=== PATIENT | female | born 1940 | race Caucasian/White ===

== ENCOUNTER 2017-04-07 07:22 | Inpatient (IN) | payer MEDICARE, BC ==
[2017-04-03 13:15] LABS: HEMATOCRIT 41.7 % (36.0-48.0); HEMOGLOBIN 13.6 g/dL (12.0-16.0)
[2017-04-03 13:26] LABS: CHLORIDE, SERUM 107 MMOL/L (96-112); CO2 (CARBON DIOXIDE) 32 MMOL/L (24-34); CREATININE 0.82 MG/DL (0.55-1.02); GFR AFRICAN AMERICAN 79 ML/MIN (>=60); GFR NON AFRICAN AMERICAN 69 ML/MIN (>=60); SODIUM, SERUM 145 MMOL/L (135-148)
[2017-04-03 13:28] LABS: BUN (BLOOD UREA NITROGEN) 19 MG/DL (6-23); CALCIUM, SERUM 9.3 MG/DL (8.5-10.4); GLUCOSE, SERUM 102 MG/DL (60-99); POTASSIUM, SERUM 4.7 MMOL/L (3.5-5.3)
--- NOTE | ~2017-04-07 | PREOPHP ---
PreOp History and Physical [facility] [address] [place]. [address] NAME: DEMETRIUS PALM : 38 STATUS : ADM IN PAT#: [id number] AGE: 76 ADM/REG DATE : 04/07/17 MR#: [id number] REPORT SERV DATE: 04/07/17 DICTATED BY: ANTHONY SMILEY DATE: 04/07/17 REPORT STATUS : Draft TRANSCRIBED BY: MODDung DATE: 04/07/17 CHIEF COMPLAINT: Intractable back pain, bilateral leg pain. HISTORY OF PRESENT ILLNESS: This is a 76-year-old female whom I have known from the past. The patient has undergone a previous L2 to the sacrum decompression and fusion for a flat back deformity. She also had a pelvis subtraction osteotomy. 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 Her overall sagittal balance is markedly abnormal. Her sagittal vertical axis is at 12 cm. The patient also has developed severe spinal stenosis at L1-2 and severe central canal stenosis at this level. Because of the above, the patient needs a decompression of L1-2. She also needs a hardware removal at L2 and L3. Originally, I was going to do hardware removal with a decompression posteriorly followed by an anterior retroperitoneal approach and an interbody cage to try to increase the overall lordosis through the disk space, but then the patient informed me that she has had a TRAM flap for previous best cancer and I have decided to proceed with everything posteriorly. This will be a two-stage procedure, initial stage will be hardware removal L2-L3, the laminectomy L1-2, followed by three-column osteotomy removing all, but the inferior aspect of the pedicle and removing the posterior superior aspect of the vertebral body as well as removing the disk itself. This will allow a large corrective osteotomy. Finally, the patient will need posterior stabilization from approximately T9-L3. A dual-amanda technique will be utilized distally to ensure a proper stabilization. Also, the patient was found to have osteoporosis and we have delayed her surgery several months as she has been receiving Forteo 20 mg subcu each day and now our bone scan is much improved. Second stage of the procedure will be completion of the osteotomy on the right side and posterior instrumentation. I will not complete the osteotomy on the right side until the 2nd stage to allow some slow gradual curve correction over the next three to four days while in the hospital. Again, the patient understands this is a very risky procedure and that she could have everything up to including paralysis and . She could have major vessel injury, blood loss, etc. Consent form has been signed. Today, in the preop holding area, the patient was identified and all questions were answered. The patient voiced understanding of the risks, willingness to accept those, and requested to proceed with surgery. PAST MEDICAL HISTORY: Has included osteoarthritis, osteoporosis. She has had a ductal cancer of the breast. She has had hypertension, hypercholesterolemia, hypothyroidism, chronic renal failure, DVT. PAST SURGICAL HISTORY: Abdominal herniorrhaphy, kidney stone removal, cataract extraction, lens implants, colonoscopy, D and C, mastectomy, TRAM flaps, partial thyroidectomy, and the previous pelvic subtraction, osteotomy, and posterior fusion with instrumentation, L2-S1. This was in 2010. CURRENT MEDICATIONS: Includes Xanax, amlodipine, aspirin, atorvastatin, cranberry, Forteo, gabapentin, hyaluronic acid, levothyroxine, MiraLAX, multiple vitamins, potassium, PreOp History and Physical [address] [address] NAME: DEMETRIUS PALM : 38 STATUS : ADM IN [facility]#: [id number] AGE: 76 ADM/REG DATE : 04/07/17 MR#: [id number] REPORT SERV DATE: 04/07/17 DICTATED BY: ANTHONY SMILEY DATE: 04/07/17 REPORT STATUS : Draft TRANSCRIBED BY: NATHALIA DATE: 04/07/17 , tramadol, Zantac, vitamin C, and vitamin D. ALLERGIES: CODEINE AND TALWIN. SOCIAL HISTORY: She is . Retired. Does not use any tobacco or alcohol. FAMILY HISTORY: Mother of diabetes, father had hypertensive disorder, and one son has bipolar disorder. PHYSICAL EXAMINATION: GENERAL: She is 5 feet 5 inches, 100 pounds, BMI of 16.6. She is alert, cooperative, well oriented. She is very thin. She walks with an assistive device with the walker leaning forward. HEENT: Exam is grossly normal except that her pupils have been altered by prior cataract surgery. NECK: Supple. LUNGS: Clear to auscultation. HEART: Rate is regular and rhythmic. MUSCULOSKELETAL: Spine has a very flat deformity. She has a kyphotic stance. She has a very obvious Gibbus deformity, it is palpable. Her reflexes are completely absent. Her iliopsoas strength is 4/5 bilateral. Her quadriceps is 4+/5. All other strengths are 5/5. No dermatomal sensory deficit is found. There is no evidence of myelopathy. Toes are downgoing. No ankle clonus is found. Orthopedically, she has no pain with moving hips, knees, or ankles. There are pulses in all four extremities. No abnormal skin lesions are found. ASSESSMENT AND RECOMMENDATIONS: As listed above. /MODL Anthony Smiley D.O. / [id number] CC: Anthony Smiley D.O.
--- NOTE | ~2017-04-07 | CN ---
Consultation Report [facility] [address] [place]. [address] NAME: DEMETRIUS PALM : 38 STATUS : ADM IN PAT#: [id number] AGE: 76 ADM/REG DATE : 04/07/17 MR#: [id number] REPORT SERV DATE: 04/08/17 DICTATED BY: STAN VELA DATE: 04/08/17 REPORT STATUS : Draft TRANSCRIBED BY: MODL DATE: 04/08/17 CARDIOLOGY CONSULTATION DATE OF CONSULTATION: 04/08/2017 CHIEF COMPLAINT: Chest pain. HISTORY OF PRESENT ILLNESS: The patient is a 76-year-old female, status post spinal surgery. Earlier today, she complained of 8/10 left-sided chest discomfort with radiation to the left shoulder. This occurred after eating ice for some dysphagia and "burning" in the throat. The patient reports a history of GERD. She reports that this occurs on a relatively frequent basis. The patient is a retired registered nurse. Prior to her admission for surgery, she was moderately active. She had no chest pain or dyspnea with physical activity. She reports at the time of her chest pain, she was administered nitroglycerin by the rapid response team and seemed to have no significant affect on her chest pain. She has had no recurrent chest pain since that time. She reports very specifically that she had "left breast pain, not chest pain." She attributes this to musculoskeletal etiology versus GERD. Troponin is negative since the event. Total CK 936 however post surgery with a CK-MB of 15.8. Electrocardiogram at the time of chest pain demonstrated sinus rhythm and normal EKG. PAST MEDICAL HISTORY: Ductal carcinoma of the breast, osteoporosis, osteoarthritis, degenerative disc disease, remote history of DVT, chronic kidney disease, hypothyroidism, hypertension, hyperlipidemia, GERD. PAST SURGICAL HISTORY: Abdominal herniorrhaphy, renal stone excision, cataract excision with lens implant, mastectomy, dilation and curettage, partial thyroidectomy, posterior fusion with instrumentation of L2 through S1, and Grayson fundoplication. SOCIAL HISTORY: Denies previous tobacco or illicit drug use. Exceptionally rare alcohol intake. Retired nurse. FAMILY HISTORY: Mother with history of pulmonary embolism and father with mitral valve disease. REVIEW OF SYSTEMS: Negative for all organ systems except per the history of present illness. PHYSICAL EXAMINATION: VITALS: Blood pressure 104/62, pulse 78, respirations 16 and unlabored, saturating 98% on 2 liters nasal cannula, weight 44 kg. GENERAL: Thin elderly female, in no acute distress. HEENT: Normal. NECK: Supple, no JVD, right carotid bruit is noted. Normal carotid upstroke bilaterally, Consultation Report [facility] [id number] [place]. [address] NAME: DEMETRIUS PALM : 38 STATUS : ADM IN PAT#: [id number] AGE: 76 ADM/REG DATE : 04/07/17 MR#: [id number] REPORT SERV DATE: 04/08/17 DICTATED BY: STAN VELA DATE: 04/08/17 REPORT STATUS : Draft TRANSCRIBED BY: MODL DATE: 04/08/17 no thyromegaly. LUNGS: Clear to auscultation and percussion. No wheezes, rales or rhonchi. No use of accessory muscles. CARDIOLOGY: Regular rhythm, normal S1, S2, no thrill, no murmur, rubs or gallops, normal PMI. ABDOMEN: Bowel sounds positive, soft, nontender, and nondistended. No masses or aortic bruits. No hepatosplenomegaly or hepatojugular reflux. EXTREMITIES: No edema. Normal pulses. No clubbing or cyanosis. SKIN: Warm and dry, no significant rash. NEUROLOGIC: Alert and oriented x 3. Appropriate mood. LABORATORY DATA: Sodium 143, potassium 4.3, chloride 107, BUN 14, creatinine 0.78, glucose 193. WBC 10.1, hemoglobin 9.6, hematocrit 28.9, platelets 175,000. Creatine kinase 935, CK MB 15.8, troponin 0.02. EKG: Sinus rhythm, normal EKG during chest pain. IMPRESSION: 1. Left-sided chest pain-the patient declines any further testing including echocardiogram and chemical nuclear perfusion stress test. She attributes her symptoms to gastroesophageal reflux disease versus musculoskeletal etiology. As the patient declines any further evaluation, we would recommend continuation of current medications. Given current blood pressure and pulse with no history of coronary disease, no indication for beta-diane at this time. 2. Carotid bruit - reports previous history of carotid ultrasound, uninterested in further evaluation of the same. 3. Hypertension - adequate control currently. Continue current medications. Thank you for the opportunity to see the patient in consultation. This patient has no interest in further evaluation, we will sign off and be available should any new issues arise. CSL/MODL Marta Vela M.D. / [id number] CC: Bibi Delcid
--- NOTE | ~2017-04-07 | DS ---
Discharge Summary [facility] [address] [place]. [address] NAME: DEMETRIUS PALM : 38 STATUS : DIS IN PAT#: [id number] AGE: 76 ADM/REG DATE : 04/07/17 MR#: [id number] REPORT SERV DATE: 04/26/17 DICTATED BY: ANTHONY SMILEY DATE: 04/25/17 REPORT STATUS : Draft TRANSCRIBED BY: NATHALIA DATE: 04/25/17 Data Collection from hospitalization DISCHARGE DIAGNOSES: 1. Severe stenosis, L1-L2. 2. 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 3. Hypertension. 4. Osteoarthritis. 5. Osteoporosis. 6. History of ductal carcinoma of the breast. 7. Hypercholesterolemia. 8. Hypothyroidism. 9. Chronic renal failure. CONSULTATIONS: Marta Vela M.D. PROCEDURE PERFORMED: 1. Microscopic and navigation-assisted surgery; hardware removal, L2 and L3, complete laminectomy, foraminotomy, facetectomy, L1-L2. Three column osteotomy L2, transforaminal diskectomy, L1-L2, anterior interbody cage at L1-L2. 2. Completion of three column spinal osteotomy on the right side. Interbody cage insertion and interbody fusion at L1-L2, posterolateral spinal fusion with segmental instrumentation, T9-L4, 04/11/2017. PATHOLOGY: Spine, lumbar, bone, tissue, and hardware, soft tissues-patchy chronic inflammation, scar and embedded bone fragments, atrophic skeletal muscle, bone-reparative changes with sclerosis, orthopedic hardware-see gross description, vertebral bone and soft tissue thoracolumbar spine-orthopedic hardware, bone and soft tissue-chronic reactive changes (no crystal for acute inflammation). MEDICATIONS: Xanax 0.5 mg at bedtime, Norvasc 5 mg at bedtime, vitamin C 500 mg every morning, Lipitor 10 mg every morning, vitamin D3 of 1000 units every morning, Colace 100 mg twice a day Zantac 150 mg every morning, levothyroxine 75 mcg every morning, Claritin 10 mg every morning, multivitamin one every morning as instructed. Urocit-K 60 mEq every morning, Ultram 50 mg every six hours, Tylenol 650 mg every four hours as needed orally or rectally, Mylanta 30 mL as needed, Dulcolax 15 mg as needed, Valium 2 mg every four hours as needed, Benadryl 12.5 mg every six hours as needed, Dilaudid 2 mg to 4 mg every four hours as needed, milk of magnesia 30 mL twice a day as needed, aspirin 81 mg every morning, probiotic one every morning as instructed, hyaluronic acid one every morning as instructed, Forteo Pen every evening as instructed. CONDITION AT DISCHARGE: Stable. DISPOSITION: The patient was discharged to [facility] on a regular diet with activities as instructed. She would follow up with me two weeks following discharge. HOSPITAL COURSE: This is a 76-year-old female who had previously undergone L2 to sacrum decompression and fusion for a flat back deformity. She also had a pelvic subtraction Discharge Summary [address] [place]. [address] NAME: DEMETRIUS PALM : 38 STATUS : DIS IN PAT#: [id number] AGE: 76 ADM/REG DATE : 04/07/17 MR#: [id number] REPORT SERV DATE: 04/26/17 DICTATED BY: ANTHONY SMILEY DATE: 04/25/17 REPORT STATUS : Draft TRANSCRIBED BY: NATHALIA DATE: 04/25/17 osteotomy. She had very good outcome from her original surgery and had now developed proximal junctional failure. She has a marked gibbus deformity at L1-L2 and compression fracture of the inferior aspect of L1 and superior aspect of L2. She has marked gibbus deformity at L1-L2 and now has significant spinal pelvic malalignment syndrome. Her overall sagittal balance was markedly abnormal. Her sagittal vertical axis is 12 cm. She had also developed severe spinal stenosis at L1-L2 and severe central canal stenosis at this level. Treatment options were discussed and it was elected to proceed with surgical intervention. She was admitted to the hospital at this time for further evaluation and treatment. Upon admission, she was taken to the operating room where she underwent the above-mentioned procedures. She tolerated this well and there were no complications. On postop day #1, she was seen in consultation by Dr. Marta Vela regarding chest pain. Prior to this admission, she has been moderately active. She had no chest pain or dyspnea with physical activity. She had complained of some 8/10 left-sided chest discomfort with radiation to the left shoulder earlier in the day. This occurred after eating ice for some dysphagia and burning in her throat. She does have a history of gastroesophageal reflux disease. She reports that this does occur on a relatively frequent basis. She had been administered nitroglycerin by the rapid response team and seemed to have no significant affect on her chest pain. She has not had recurrent chest pain since that time. The patient reported very specifically that she had left breast pain, not chest pain. She attributes this to musculoskeletal etiology versus gastroesophageal reflux disease. Troponin was negative since the event. Total CK was 136 with a CK-MB of 15.8. Electrocardiogram at that time, her chest pain demonstrated sinus rhythm and normal EKG. White blood cell count was 10.1. The patient declined any further testing including echocardiogram and chemical nuclear perfusion stress test. She attributed her symptoms to gastroesophageal reflux disease versus musculoskeletal etiology. Her current medications were continued. Blood pressure was under adequate control. Her current blood pressure medications were continued. On postop day #2, she was doing okay. She was encouraged to participate with Physical Therapy. Plans are being made to proceed with the second stage of her surgical intervention. She had no complaints of leg pain. She did have some pain in her low back. On 04/11/2017, she was taken back to the operating room where she underwent the above-mentioned procedure. She tolerated this well. There were no complications. On 04/12/2017, she was doing well except for severe low back pain. She described as being 10/10. Her pain medications had been increased. Over the next couple of days, she continued to progress. She was doing well. She was up sitting in a chair. She had no leg pain. She was placed on oral medications. Discharge planning was performed. On 04/14/2017, she still had a lot of low back pain. She had no leg pain. She was passing flatus. Her Dilaudid had been increased discharge instructions were given. Due to her improved and stable condition, she was discharged to [facility] with the above-stated instructions. Information collected by: Kailey Bergman I submit the above information as my discharge summary. Discharge Summary [facility] [id number] [place]. [address] NAME: DEMETRIUS PALM : 38 STATUS : DIS IN [facility]#: [id number] AGE: 76 ADM/REG DATE : 04/07/17 MR#: [id number] REPORT SERV DATE: 04/26/17 DICTATED BY: ANTHONY SMILEY DATE: 04/25/17 REPORT STATUS : Draft TRANSCRIBED BY: MODL DATE: 04/25/17 TG/NATHALIA Anthony Smiley D.O. / [id number] CC: iBbi Delcid MD C. Samuel Ledford, M.D. [facility]
--- NOTE | ~2017-04-07 | OP ---
Record Of Operation [facility] [address] [place]. [address] NAME: DEMETRIUS PALM : 38 STATUS : ADM [facility]#: [id number] AGE: 76 ADM/REG DATE : 04/07/17 MR#: [id number] REPORT SERV DATE: 04/08/17 DICTATED BY: ANTHONY SMILEY DATE: 04/07/17 REPORT STATUS : Draft TRANSCRIBED BY: MODL DATE: 04/07/17 DATE OF PROCEDURE: PREOPERATIVE DIAGNOSES: 1. 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 2. Previous lumbar fusion with osteotomy and instrumentation, L2 to S1. 3. Severe spinal stenosis, L1-L2. 4. Prominent painful hardware at L2-L3. POSTOPERATIVE DIAGNOSES: 1. 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 2. Previous lumbar fusion with osteotomy and instrumentation, L2 to S1. 3. Severe spinal stenosis, L1-L2. 4. Prominent painful hardware at L2-L3. PROCEDURES: 1. Microscopic and navigation-assisted surgery. 2. Hardware removal, L2 and L3. 3. Complete laminectomy, foraminotomy, facetectomy, L1-L2. 4. A three-column osteotomy, L2. 5. Transforaminal diskectomy, L1-L2. 6. Anterior interbody cage at L1-L2. SURGEON: Anthony Smiley D.O. BARK SPUDDER: Maurizio Alcazar. ANESTHESIA: General. BLOOD LOSS: 200 mL. INDICATION FOR SURGERY: Indication for surgery and risks were explained. They are listed in last office note as well as the history and physical. See that for detail. DESCRIPTION OF PROCEDURE: Antibiotic prophylaxis given. Neurophysiology monitoring leads inserted. The patient brought to the operative suite. General anesthetic including endotracheal intubation administered. Quiles catheter was placed with sterile technique. The patient was placed prone on a Girma spine frame. Bony prominences were carefully padded. The thoracolumbar spine was scrubbed with Hibiclens solution. DuraPrep was painted. Sterile drapes applied. Please note that intraoperative imaging was taken after we placed the patient in a prone position, and there was essentially no correction of the deformity at L1-L2 as the patient had had instrumentation from L2 to the pelvis, but the fusion had bled over and extended to L1 and appeared to have a rather solid fusion even at L1-L2. Record Of Operation [facility] [address] [place]. [address] NAME: DEMETRIUS PALM : 38 STATUS : ADM IN PAT#: [id number] AGE: 76 ADM/REG DATE : 04/07/17 MR#: [id number] REPORT SERV DATE: 04/08/17 DICTATED BY: ANTHONY SMILEY DATE: 04/07/17 REPORT STATUS : Draft TRANSCRIBED BY: MODL DATE: 04/07/17 After the patient was properly prepped and draped and sterile drapes applied, a midline incision was carried out. The exposure was carried out from T9 to the L5 area. Midline fascia was divided. Paraspinous muscles retracted laterally and subperiosteal dissection was carried out all the way to the tip of the transverse processes in the thoracic spine and all the way out past the posterolateral fusion and hardware in the mid lumbar spine. The hardware at L2 and L3 was exposed. A carbide bit was used to transect the amanda just below the screw at L3. Both left and right side, the hardware was removed completely. Next, an intraoperative CT scan with O-arm was obtained. A CT information was used to register navigational system. With navigational assistance, I observed and outlined the inferior aspect of the lamina of L2 and also the facet joints. I then very carefully from distal to proximal released the epidural adhesions to the dura and carried out a complete laminectomy, foraminotomy, facetectomy, removing the entire lamina and facet joints both superior and inferior at L2, the anterior facet joint of L1, superior facet joint of L2 as well as the vast majority of the lamina of L1. This was all done with cutting burs; sunshine burs; and 2, 3, and 4 mm Kerrison rongeurs. We did encounter one small area of dural adhesion where I had to place a couple of 4-0 Nurolon sutures for an incidental durotomy, but it was watertight and no problems occurred. I decided I would then carry out an osteotomy through the pedicle of L2. The exiting L1 nerve root, the disk space of L1-L2, and the pedicle of L2 were isolated. I removed the pedicle from lateral to medial. We did leave the inferior third of the pedicle and the cortical surface. I then entered at approximately the junction of the anterior and middle third of the vertebral body, so a posterior lateral osteotomy was carried out. The disk itself was removed completely with curettes and rongeurs and August osteotomy was completed. The wounds were irrigated copiously. This gave plenty of room to place a 12 mm x 22 mm interbody cage, and I then left the cage to provide some anterior column instability. There was some posterior lateral fusion on the right side, which had not been osteotomized, but I could see some slight motion occurring and I felt like I would give this 2 to 3 days to slowly and spontaneously correct over time and the second stage of surgery will include the final osteotomy on the right side at L1-L2 as well as the diskectomy and interbody cage on the right side, and interbody fusion at L1-L2 followed by the posterior instrumentation T9 to L4, and a double amanda construct will be used distally to provide rigid stability. I think we can get excellent correction through this osteotomy distally. The wounds were irrigated. Vancomycin powder was placed in the wound and the myofascial layer was closed with a double looped #1 PDS suture. The subcutaneous tissue closed with 2-0 Vicryl suture, 2-0 vertical mattress nylon suture used for skin closure. Sterile dressing applied. The patient awakened, extubated, taken to recovery room in satisfactory condition having tolerated procedure well. Sponge, needle, and instrument counts were correct. No intraoperative complications noted. /[facility] Record Of Operation [facility] [address] [facility] [place]. [address] NAME: DEMETRIUS PALM : 38 STATUS : ADM IN [facility]#: [id number] AGE: 76 ADM/REG DATE : 04/07/17 MR#: [id number] REPORT SERV DATE: 04/08/17 DICTATED BY: ANTHONY SMILEY DATE: 04/07/17 REPORT STATUS : Draft TRANSCRIBED BY: MODL DATE: 04/07/17 Anthony Smiley D.O. / [id number] CC: Anthony Smiley D.O.
--- NOTE | ~2017-04-07 | OP ---
Record Of Operation [facility] [address] [place]. [address] NAME: DEMETRIUS PALM : 36 STATUS : ADM IN [facility]#: [id number] AGE: 76 ADM/REG DATE : 04/07/17 MR#: [id number] REPORT SERV DATE: 04/13/17 DICTATED BY: ANTHONY SMILEY DATE: 04/13/17 REPORT STATUS : Draft TRANSCRIBED BY: MODL DATE: 04/13/17 DATE OF PROCEDURE: 04/11/2017 PREOPERATIVE DIAGNOSES: 1. Previous L2-S1 fusion with instrumentation. 2. Proximal junctional kyphosis/failure. 3. Thoracolumbar kyphoscoliosis. POSTOPERATIVE DIAGNOSES: 1. Previous L2-S1 fusion with instrumentation. 2. Proximal junctional kyphosis/failure. 3. Thoracolumbar kyphoscoliosis. PROCEDURE: 1. Right-sided three-column osteotomy L1-2. 2. Completion of transforaminal diskectomy L1-2. 3. Interbody cage exchange. 4. Posterolateral interbody fusion L1-2. 5. Posterior spinal fusion with segmental spinal instrumentation T9-L4. SURGEON: Anthony Smiely D.O. BALL TRUING MACHINE OPERATOR: Maurizio Alcazar. ANESTHESIA: General. BLOOD LOSS: 150 mL. INDICATIONS: Indications for surgery and risks were explained. They are listed in the last office note as well as the history and physical. See that for detail. Please note, this is a 2nd stage surgery, 1st stage was on 04/07/2017. OPERATION: The patient was identified in preop holding. All antibiotic prophylaxis was given. Neurophysiology monitoring leads were inserted. The patient was brought to the operative suite. General anesthetic including endotracheal intubation was administered. Quiles catheter was already in place. She was placed prone on Girma spine frame. Bony prominences were carefully padded. Thoracolumbar spine was scrubbed with Hibiclens solution and DuraPrep was painted. Sterile drapes were applied. Initially, the wound was irrigated copiously. Because of the complexity of surgery, we felt that intraoperative navigation was mandatory. Reference frame was attached to the spinous process of T9. Intraoperative CT scan with O- arm obtained, CT information used to register the navigational system. Record Of Operation [facility] [address] [place]. [address] NAME: DEMETRIUS PALM : 36 STATUS : ADM IN PAT#: [id number] AGE: 76 ADM/REG DATE : 04/07/17 MR#: [id number] REPORT SERV DATE: 04/13/17 DICTATED BY: ANTHONY SMILEY DATE: 04/13/17 REPORT STATUS : Draft TRANSCRIBED BY: NATHALIA DATE: 04/13/17 With navigational assistance, I identified the entry into the pedicles of L1, T12, 11, 10, and 9. A army helicopter pilot hole was created through the pedicle and then each pedicle was tapped. The hardware was placed on the left side including the screws, as well as the amanda, and the amanda was connected to the distal amanda through a Clemons. A stabilizing amanda was placed initially, which was a working amanda. We then placed the screws of T9, 10, 11, and 12 on the right side. Under microscope, we then, with navigational assistance, carried out resection of the previous fusion mass at L1-2. We then removed the facet joint completely with removal of the pars interarticularis and the facet of L1 and superior facet of L2. We then carried out an HHALL osteotomy through the pedicle of L2 removing not only that the superior 2/3 of the pedicle but also removing the posterior superior aspect of the L2 vertebral body and also removing the entire disk on the right side at L1-2. The previous cage at L1-2 was removed and exchanged. The wound was irrigated. We placed a 10 x 22 mm cage anteriorly and turned it transversely as a brace, but over the anterior body of L1-2, we then packed the posterior lateral portion of the interbody space with local bone graft and allograft. The screw was inserted at L1 on the right. The right-sided permanent amanda was connected to a Denzel distally. Reduction was carried out slowly and gradually with monitoring being normal throughout the entire reduction process to reduce the kyphoscoliosis. Initially, we reduced the kyphosis and then reduced the scoliosis by distracting on the concave side. We had exchanged working amanda for a permanent amanda on the left side as well. After correction of the deformity, we then did a double [id number] connection between T10- 11 as well as L4-5 to create a double amanda construct bilateral to reinforce the osteotomy site in terms of strength. Finally, a posterior lateral fusion was carried out from T9-L4 using a combination of local bone graft allograft and bone protein. The intraoperative CT scan was repeated showing excellent position of all implants. Vancomycin powder was placed in the wound. The myofascial layer was closed with double looped #1 PDS suture. The subcutaneous tissue was closed with 2-0 Vicryl suture, 2-0 vertical mattress nylon suture was used for skin closure. Sterile dressing was applied. The patient was awakened, extubated, taken to recovery room in satisfactory condition having tolerated the procedure well. KASH/NATHALIA Anthony Smiley D.O. / [id number] CC: Bibi Delcid ANDERS EUGENE
--- NOTE | ~2017-04-07 | OP ---
Record Of Operation [facility] [address] [place]. [address] NAME: DEMETRIUS PALM : 36 STATUS : ADM IN PAT#: [id number] AGE: 76 ADM/REG DATE : 04/07/17 MR#: [id number] REPORT SERV DATE: 04/11/17 DICTATED BY: ANTHONY SMILEY DATE: 04/11/17 REPORT STATUS : Draft TRANSCRIBED BY: MODL DATE: 04/11/17 DATE OF PROCEDURE: 04/11/2017 PREOPERATIVE DIAGNOSIS: Thoracolumbar kyphoscoliosis. POSTOPERATIVE DIAGNOSIS: Thoracolumbar kyphoscoliosis. PROCEDURE: 1. Completion of 3-column spinal osteotomy, right side. 2. Interbody cage insertion, interbody fusion, L1-2. 3. Posterior lateral spinal fusion with segmental instrumentation, T9-L4. TOOL AND CUTTER GRINDER: Maurizio Alcazar. ANESTHESIA: General. ESTIMATED BLOOD LOSS: 150 mL. INDICATION FOR SURGERY: Indication for surgery and risks have already been explained. They are listed in the history and physical, see that for detail. DESCRIPTION OF PROCEDURE: The patient was identified in the preop holding area. Antibiotic prophylaxis given. Neurophysiology monitoring leads inserted. The patient brought to the operative suite. General anesthetic including endotracheal intubation was administered. Quiles catheter was already in place. She was placed prone on a Girma spine frame. Bony prominences were carefully padded. Thoracolumbar spine scrubbed with Hibiclens solution. DuraPrep was painted. Sterile drapes applied. Previous incisions from the first stage of the surgery four days ago was removed. The wound was opened and copiously irrigated. The wound appeared very clean. Our first step was to stabilize the spine by placing hardware on the left side. We initially attached a reference frame to the spinous process of T9. Intraoperative CT scan with O-arm obtained, CT information used to register the navigational system. With navigational assistance, I placed a chief pilot hole through the pedicle of T9, T10, T11, T12, and L1 bilaterally. Each of the pedicles were then tapped and the polyaxial five Solera titanium screws were placed after the facet joints were decorticated along with the transverse processes in the remaining lamina. After all the screws were placed, I then placed a temporary working amanda from T9-L4. I then used a sterilely draped microscope and under microscopic dissection, I removed the entire too-lamina, the facet, and the superior portion of the pedicle of L1-2. I removed the superior part of the pedicle at L2 to allow a August 3-column osteotomy. The transforaminal diskectomy completed on the right side as it had already been completed on the left side. The wounds were irrigated. A previously placed cage at L1-2 was removed. I Record Of Operation [facility] [id number] [place]. [address] NAME: DEMETRIUS PALM : 36 STATUS : ADM IN PAT#: [id number] AGE: 76 ADM/REG DATE : 04/07/17 MR#: [id number] REPORT SERV DATE: 04/11/17 DICTATED BY: ANTHONY SMILEY DATE: 04/11/17 REPORT STATUS : Draft TRANSCRIBED BY: NATHALIA DATE: 04/11/17 exchanged it for a slightly smaller and shorter and I turned the cage transversely to allow bracing of the anterior column. Next, we placed the amanda from T9-L4 using a [place] end-to-end connector to connect a distal amanda. We did contour it for slight lordosis in the upper lumbar spine and slight kyphosis in the lower thoracic spine. A slight reduction at the osteotomy site was carried out. Motor evoked potentials and sensory evoked potentials remained normal throughout the reduction of the kyphoscoliosis. After correcting the sagittal deformity, we then compressed on the left side correcting the coronal plane deformity, this was a biplanar correction. After final correction was completed, the amanda on the right side and the left side were tightened into final position. We then placed a dual amanda with a [id number] connector from T11 to L4. This dual amanda construct markedly increased the overall strength of the construct across the osteotomy site. Finally, a posterior lateral spinal fusion was carried out with local bone graft, allograft, and a small dosage of bone morphogenic protein from T9-L4. Intraoperative CT scan with O-arm repeated showing excellent correction of the kyphoscoliosis and also good position of all implants. The vancomycin powder was placed in the wound. The myofascial layer was closed with double looped #1 PDS suture. The subcutaneous tissue closed with 2-0 Vicryl sutures, 2-0 vertical mattress nylon suture used for skin closure. Sterile dressings applied. The patient was awakened, extubated, and taken to the recovery room in satisfactory condition having tolerated the procedure well. Sponge, needle, and instrument counts were correct. No intraoperative complications noted. KASH/NATHALIA Anthony Smiley D.O. / [id number] CC: Bibi Delcid ANDERS EUGENE
[~2017-04-07 07:22] MED LIST: ALLEGRA180 PO; ASAB PO; CALTRA600D PO; CLARIT10 PO; CRANBERRY300 MG PO; FOLIC PO; FORTEO SC; FOSAMAX70 MG PO; HYALURONIC ACID PO; HYALURONIC20 MG OR; LEVOTHYROXIN75 MCG PO; LIPITOR10 PO; MIRALAXPKT PO; MULTI-VIT HP PO; MULTIVITAMI1 PO; NEXIUM40 PO; NORV5 PO; PRAVACHOL40 MG PO; PRIN5 PO; PROBIOTIC PO; UROCIT K; UROCIT-K 15 PO; VITAMIN D31000 UNIT PO; VITAMIN E; VITC500 PO; X5 PO; ZANTAC 150 PO
[2017-04-07 17:33] LABS: BUN (BLOOD UREA NITROGEN) 16 MG/DL (6-23); CHLORIDE, SERUM 107 MMOL/L (96-112); CO2 (CARBON DIOXIDE) 28 MMOL/L (24-34); CREATININE 0.77 MG/DL (0.55-1.02); GFR AFRICAN AMERICAN 86 ML/MIN (>=60); GFR NON AFRICAN AMERICAN 74 ML/MIN (>=60)
[2017-04-07 17:34] LABS: CALCIUM, SERUM 7.8 MG/DL (8.5-10.4); GLUCOSE, SERUM 195 MG/DL (60-99); POTASSIUM, SERUM 3.5 MMOL/L (3.5-5.3); SODIUM, SERUM 137 MMOL/L (135-148)
[2017-04-07 17:41] LABS: BASOPHILS 0.1 %; BASOPHILS ABSOLUTE 0.01 10/3/uL (0.0-0.16); EOSINOPHILS 0.3 %; EOSINOPHILS ABSOLUTE 0.03 10/3/uL (0.0-0.53); IMMATURE GRANULOCYTES 0.2 %; IMMATURE GRANULOCYTES ABSOLUTE 0.02 10/3/uL (0.0-0.11); LYMPHOCYTES 6.8 %; LYMPHOCYTES ABSOLUTE 0.68 10/3/uL (0.67-4.30); MEAN CORPUS HGB CONC 33.2 g/dL (32.0-36.0); MEAN CORPUSCULAR HEMOGLOB 31.2 pg (26.0-34.0); MEAN CORPUSCULAR VOLUME 93.9 fL (80-100); MONOCYTES 1.9 %; MONOCYTES ABSOLUTE 0.19 10/3/uL (0.21-1.20); NEUTROPHILS 90.7 %; NEUTROPHILS ABSOLUTE 9.06 10/3/uL (2.02-8.40); RBC DISTRIBUTION WIDTH 14.2 % (12.0-16.0); RED CELL COUNT 3.46 10/6/uL (4.0-5.6)
[2017-04-07 17:44] LABS: HEMATOCRIT 32.5 % (36.0-48.0); HEMOGLOBIN 10.8 g/dL (12.0-16.0); MANUAL DIFF NO %; PLATELET COUNT 173 10/3/uL (150-400)
[2017-04-08 04:24] LABS: BASOPHILS 0.2 %; BASOPHILS ABSOLUTE 0.02 10/3/uL (0.0-0.16); EOSINOPHILS 0.1 %; EOSINOPHILS ABSOLUTE 0.01 10/3/uL (0.0-0.53); HEMATOCRIT 28.9 % (36.0-48.0); HEMOGLOBIN 9.6 g/dL (12.0-16.0); IMMATURE GRANULOCYTES 0.2 %; IMMATURE GRANULOCYTES ABSOLUTE 0.02 10/3/uL (0.0-0.11); LYMPHOCYTES ABSOLUTE 1.01 10/3/uL (0.67-4.30); MANUAL DIFF NO %; MEAN CORPUS HGB CONC 33.2 g/dL (32.0-36.0); MEAN CORPUSCULAR HEMOGLOB 31.9 pg (26.0-34.0); MEAN PLATELET VOLUME 9.9 fL (9.2-13.0); MONOCYTES 9.2 %; MONOCYTES ABSOLUTE 0.93 10/3/uL (0.21-1.20); NEUTROPHILS 80.3 %; NEUTROPHILS ABSOLUTE 8.15 10/3/uL (2.02-8.40); PLATELET COUNT 175 10/3/uL (150-400); RBC DISTRIBUTION WIDTH 14.3 % (12.0-16.0); RED CELL COUNT 3.01 10/6/uL (4.0-5.6); WHITE BLOOD CELLS 10.1 10/3/uL (4.5-10.5)
[2017-04-08 04:35] LABS: BUN (BLOOD UREA NITROGEN) 14 MG/DL (6-23); CALCIUM, SERUM 7.2 MG/DL (8.5-10.4); CHLORIDE, SERUM 107 MMOL/L (96-112); CO2 (CARBON DIOXIDE) 30 MMOL/L (24-34); CREATININE 0.78 MG/DL (0.55-1.02); GFR AFRICAN AMERICAN 84 ML/MIN (>=60); GFR NON AFRICAN AMERICAN 73 ML/MIN (>=60); GLUCOSE, SERUM 193 MG/DL (60-99); SODIUM, SERUM 143 MMOL/L (135-148)
[2017-04-08 04:36] LABS: POTASSIUM, SERUM 4.3 MMOL/L (3.5-5.3)
[2017-04-08 12:19] LABS: CK-MB 15.8 NG/ML; CKMB INDEX (NOT ORD) 1.7; TROPONIN I 0.02 NG/ML (<0.05)
[2017-04-10 04:52] LABS: BASOPHILS 0.2 %; BASOPHILS ABSOLUTE 0.02 10/3/uL (0.0-0.16); EOSINOPHILS 2.9 %; EOSINOPHILS ABSOLUTE 0.25 10/3/uL (0.0-0.53); HEMATOCRIT 29.7 % (36.0-48.0); HEMOGLOBIN 9.8 g/dL (12.0-16.0); IMMATURE GRANULOCYTES 0.2 %; IMMATURE GRANULOCYTES ABSOLUTE 0.02 10/3/uL (0.0-0.11); LYMPHOCYTES 16.8 %; LYMPHOCYTES ABSOLUTE 1.47 10/3/uL (0.67-4.30); MANUAL DIFF NO %; MEAN CORPUSCULAR HEMOGLOB 31.8 pg (26.0-34.0); MEAN CORPUSCULAR VOLUME 96.4 fL (80-100); MEAN PLATELET VOLUME 10.1 fL (9.2-13.0); MONOCYTES 12.4 %; MONOCYTES ABSOLUTE 1.09 10/3/uL (0.21-1.20); NEUTROPHILS 67.5 %; NEUTROPHILS ABSOLUTE 5.92 10/3/uL (2.02-8.40); PLATELET COUNT 162 10/3/uL (150-400); RBC DISTRIBUTION WIDTH 13.8 % (12.0-16.0); RED CELL COUNT 3.08 10/6/uL (4.0-5.6); WHITE BLOOD CELLS 8.8 10/3/uL (4.5-10.5)
[2017-04-10 05:05] LABS: CALCIUM, SERUM 7.8 MG/DL (8.5-10.4); CHLORIDE, SERUM 103 MMOL/L (96-112); CO2 (CARBON DIOXIDE) 31 MMOL/L (24-34); CREATININE 0.58 MG/DL (0.55-1.02); GFR AFRICAN AMERICAN 102 ML/MIN (>=60); GFR NON AFRICAN AMERICAN 88 ML/MIN (>=60); SODIUM, SERUM 138 MMOL/L (135-148)
[2017-04-10 05:09] LABS: BUN (BLOOD UREA NITROGEN) 6 MG/DL (6-23); GLUCOSE, SERUM 85 MG/DL (60-99); POTASSIUM, SERUM 3.4 MMOL/L (3.5-5.3)
[2017-04-11 14:15] LABS: BASOPHILS 0.1 %; BASOPHILS ABSOLUTE 0.01 10/3/uL (0.0-0.16); EOSINOPHILS 0.2 %; EOSINOPHILS ABSOLUTE 0.02 10/3/uL (0.0-0.53); HEMOGLOBIN 9.2 g/dL (12.0-16.0); IMMATURE GRANULOCYTES 0.4 %; IMMATURE GRANULOCYTES ABSOLUTE 0.04 10/3/uL (0.0-0.11); LYMPHOCYTES 4.1 %; LYMPHOCYTES ABSOLUTE 0.41 10/3/uL (0.67-4.30); MANUAL DIFF NO %; MEAN CORPUS HGB CONC 34.1 g/dL (32.0-36.0); MEAN CORPUSCULAR HEMOGLOB 31.5 pg (26.0-34.0); MEAN CORPUSCULAR VOLUME 92.5 fL (80-100); MEAN PLATELET VOLUME 9.4 fL (9.2-13.0); MONOCYTES ABSOLUTE 0.59 10/3/uL (0.21-1.20); NEUTROPHILS 89.2 %; NEUTROPHILS ABSOLUTE 8.84 10/3/uL (2.02-8.40); PLATELET COUNT 150 10/3/uL (150-400); RBC DISTRIBUTION WIDTH 13.6 % (12.0-16.0); RED CELL COUNT 2.92 10/6/uL (4.0-5.6); WHITE BLOOD CELLS 9.9 10/3/uL (4.5-10.5)
[2017-04-11 14:27] LABS: BUN (BLOOD UREA NITROGEN) 9 MG/DL (6-23); CALCIUM, SERUM 8.1 MG/DL (8.5-10.4); CHLORIDE, SERUM 104 MMOL/L (96-112); CO2 (CARBON DIOXIDE) 28 MMOL/L (24-34); CREATININE 0.45 MG/DL (0.55-1.02); GFR AFRICAN AMERICAN 111 ML/MIN (>=60); GFR NON AFRICAN AMERICAN 96 ML/MIN (>=60); POTASSIUM, SERUM 3.8 MMOL/L (3.5-5.3); SODIUM, SERUM 138 MMOL/L (135-148)
[2017-04-11 14:28] LABS: GLUCOSE, SERUM 172 MG/DL (60-99)
[2017-04-12 05:16] LABS: BASOPHILS 0.1 %; BASOPHILS ABSOLUTE 0.01 10/3/uL (0.0-0.16); EOSINOPHILS 0 %; HEMATOCRIT 30.8 % (36.0-48.0); HEMOGLOBIN 10.7 g/dL (12.0-16.0); IMMATURE GRANULOCYTES 0.3 %; IMMATURE GRANULOCYTES ABSOLUTE 0.05 10/3/uL (0.0-0.11); LYMPHOCYTES 4.1 %; LYMPHOCYTES ABSOLUTE 0.62 10/3/uL (0.67-4.30); MANUAL DIFF NO %; MEAN CORPUS HGB CONC 34.7 g/dL (32.0-36.0); MEAN CORPUSCULAR HEMOGLOB 31.7 pg (26.0-34.0); MEAN CORPUSCULAR VOLUME 91.1 fL (80-100); MEAN PLATELET VOLUME 9.7 fL (9.2-13.0); MONOCYTES ABSOLUTE 1.97 10/3/uL (0.21-1.20); NEUTROPHILS 82.5 %; PLATELET COUNT 222 10/3/uL (150-400); RBC DISTRIBUTION WIDTH 13.8 % (12.0-16.0); RED CELL COUNT 3.38 10/6/uL (4.0-5.6); WHITE BLOOD CELLS 15.2 10/3/uL (4.5-10.5)
[2017-04-12 05:25] LABS: BUN (BLOOD UREA NITROGEN) 9 MG/DL (6-23); CALCIUM, SERUM 7.7 MG/DL (8.5-10.4); CHLORIDE, SERUM 101 MMOL/L (96-112); CO2 (CARBON DIOXIDE) 29 MMOL/L (24-34); CREATININE 0.52 MG/DL (0.55-1.02); GFR AFRICAN AMERICAN 106 ML/MIN (>=60); GFR NON AFRICAN AMERICAN 92 ML/MIN (>=60); GLUCOSE, SERUM 171 MG/DL (60-99); POTASSIUM, SERUM 3.9 MMOL/L (3.5-5.3); SODIUM, SERUM 137 MMOL/L (135-148)
== END 2017-04-14 16:44 | DRG 458 ==
LOC: SDC/OF 07:22 → PACU 16:25 → 3SO 17:49
PROVIDERS: Orthopaedic Surgery Orthopaedic Surgery of the Spine
PROC: 0SP004Z Removal of Internal Fixation Device from Lumbar Vertebral Joint, Open Approach (ICD-10-PCS; principal; 2017-04-07 10:45)
PROC: 0SG00AJ Fusion of Lumbar Vertebral Joint with Interbody Fusion Device, Posterior Approach, Anterior Column, Open Approach (ICD-10-PCS; 2017-04-07 10:45)
PROC: 0ST20ZZ Resection of Lumbar Vertebral Disc, Open Approach (ICD-10-PCS; 2017-04-07 10:45)
PROC: 4A11X4G Monitoring of Peripheral Nervous Electrical Activity, Intraoperative, External Approach (ICD-10-PCS; 2017-04-07 10:45)
PROC: 0RGA0Z1 (ICD-10-PCS; 2017-04-11)
PROC: 0RG70Z1 (ICD-10-PCS; 2017-04-11 09:45)
DX: M40.299 Other kyphosis, site unspecified (principal); I10 Essential (primary) hypertension; E78.5 Hyperlipidemia, unspecified
CPT/HCPCS: 36415; 71010; 72020; 72072; 72100; 80048; 82550; 82553; 82962; 84484; 85014; 85018; 85025; 86850; 86900; 86901; 86920; 87641; 88300; 88304; 88311; 93005; 97116-GP; 97162-GP; 97164-GP; A9270-GY; C1713; C1768; G8978-CL-GP; G8979-CJ-GP; J0360; J0690; J1170; J1644; J2250; J2370; J2405; J2710; J2765; J3010; J3370; P9016; P9045

== ENCOUNTER 2017-04-28 12:59 | Emergency (ER) | payer MEDICARE, BC ==
[2017-04-28 13:49] LABS: BASOPHILS 0.3 %; BASOPHILS ABSOLUTE 0.03 10/3/uL (0.0-0.16); EOSINOPHILS 1.6 %; EOSINOPHILS ABSOLUTE 0.16 10/3/uL (0.0-0.53); ER CBC TAT 0 Hrs 11 Mins; HEMATOCRIT 28.9 % (36.0-48.0); HEMOGLOBIN 9.6 g/dL (12.0-16.0); IMMATURE GRANULOCYTES 0.1 %; IMMATURE GRANULOCYTES ABSOLUTE 0.01 10/3/uL (0.0-0.11); LYMPHOCYTES 13.5 %; LYMPHOCYTES ABSOLUTE 1.31 10/3/uL (0.67-4.30); MEAN CORPUS HGB CONC 33.2 g/dL (32.0-36.0); MEAN CORPUSCULAR VOLUME 93.2 fL (80-100); MEAN PLATELET VOLUME 9.1 fL (9.2-13.0); MONOCYTES 6.2 %; NEUTROPHILS 78.3 %; WHITE BLOOD CELLS 9.7 10/3/uL (4.5-10.5)
[2017-04-28 13:50] LABS: MANUAL DIFF NO %; PLATELET COUNT 401 10/3/uL (150-400)
[2017-04-28 14:08] LABS: A/G RATIO 0.7 (0.7-1.9); ALBUMIN 2.4 G/DL (3.5-5.0); ALKALINE PHOSPHATASE 147 U/L (45-117); BUN (BLOOD UREA NITROGEN) 16 MG/DL (6-23); CALCIUM, SERUM 7.6 MG/DL (8.5-10.4); CHLORIDE, SERUM 109 MMOL/L (96-112); CO2 (CARBON DIOXIDE) 26 MMOL/L (24-34); CREATININE 0.49 MG/DL (0.55-1.02); GFR AFRICAN AMERICAN 108 ML/MIN (>=60); GFR NON AFRICAN AMERICAN 93 ML/MIN (>=60); GLOBULIN 3.3 G/DL (2.5-4.1); GLUCOSE, SERUM 115 MG/DL (60-99); POTASSIUM, SERUM 3.8 MMOL/L (3.5-5.3); SGOT(AST) 25 U/L (5-40); SGPT(ALT) 18 U/L (5-65); SODIUM, SERUM 142 MMOL/L (135-148); TOTAL BILIRUBIN 0.4 MG/DL (0-1.2); TOTAL PROTEIN 5.7 G/DL (6.0-8.5)
== END 2017-04-28 19:18 | disposition home or self-care (01) ==
LOC: ER 12:59
PROVIDERS: Emergency Medicine
DX: G89.18 Other acute postprocedural pain (principal); M54.9 Dorsalgia, unspecified; I10 Essential (primary) hypertension; Z85.3 Personal history of malignant neoplasm of breast; Z88.5 Allergy status to narcotic agent; Z88.8 Allergy status to other drugs, medicaments and biological substances; Z79.82 Long term (current) use of aspirin; Z79.899 Other long term (current) drug therapy
CPT/HCPCS: 72080; 80053; 83880; 85025; 87040; 96374; 96375; 99284; J1170; J2405; J2930